=== PATIENT | male | born 1935 | race Caucasian/White ===

== ENCOUNTER → 2021-07-19 | Day surgery (SDC) | payer MEDICARE ==
[~2021-07-19] MED LIST: DAILY VALUE1 EACH PO; DONEPEZIL HCL5 MG PO; ELIQUIS2.5 MG PO; JANUVIA50 MG PO; LATANOPROST2.5 ML OP; MONTELUKAST SOD10 MG PO; PROTONIX 40 MG40 M1 PO
== END | disposition home or self-care (01) ==
LOC: OR 05:12
DX: C44.90 Unspecified malignant neoplasm of skin, unspecified (principal); I48.91 Unspecified atrial fibrillation; E11.9 Type 2 diabetes mellitus without complications; Z79.01 Long term (current) use of anticoagulants; Z79.899 Other long term (current) drug therapy
CPT/HCPCS: 77001; 82962; C1769; C1788; J0690; J1100; J1642; J2001; J2405; J2704; J7040